=== PATIENT | female | born 1945 | race Caucasian/White ===

== ENCOUNTER → 2020-11-18 14:15 | Outpatient (BNVA) | payer MEDICARE, MEDICAID, SELFPAY | PROVIDERS: PCP Internal Medicine; Visit Provider Hospitalist | DX: R06.02 Shortness of breath (principal); G47.33 Obstructive sleep apnea (adult) (pediatric); M79.604 Pain in right leg; M79.605 Pain in left leg | CPT/HCPCS: 99202 ==

== ENCOUNTER → 2020-12-13 12:50 | Outpatient (REF) | payer MEDICARE, MEDICAID, SELFPAY | LOC: HO.SL 12:50 | PROVIDERS: PCP Internal Medicine; Visit Provider Hospitalist | DX: G47.33 Obstructive sleep apnea (adult) (pediatric) (principal) | CPT/HCPCS: 95806 ==

== ENCOUNTER 2021-02-08 12:55 | Outpatient (REF) | payer MEDICARE, MEDICAID, SELFPAY ==
--- NOTE | 2021-02-08 16:25 | PFT_ITS ---
Forced vital capacity FEV1, [id number], and MVV are all normal. Postbronchodilator therapy, there is no significant change. Total lung capacity and residual volume normal. Diffusion capacity is slightly decreased. CONCLUSION: Normal pulmonary function test. Slight decrease in diffusion capacity is probably due to technical reason or may be non pulmonary factors. Clinical correlation is recommended. MD SHAUN Otero/SUSIL / [id number]
== END 2021-02-08 12:56 | disposition home or self-care (01) ==
LOC: HO.RESP 12:55
PROVIDERS: PCP Internal Medicine; Visit Provider Hospitalist
DX: R06.00 Dyspnea, unspecified (principal)
CPT/HCPCS: 94060; 94727; 94729; 99212